=== PATIENT | female | born 1950 | race Caucasian/White ===

== ENCOUNTER → 2020-06-29 | Outpatient (CLI) | payer OTHER ==
[~2020-06-29] MED LIST: DICLOFENAC SODI75 MG PO; EZETIMIBE10 MG PO; FLONASE 0.05%50 MCG NARES; LEVOTHYROXINE175 MCG PO
== END ==
LOC: LAB 13:17
PROVIDERS: ATTEND Student in an Organized Health Care Education/Training Program
DX: U07.1 COVID-19 (principal)

== ENCOUNTER 2020-07-04 12:38 | Day surgery (SDC) | payer OTHER ==
[2020-06-29 14:36] LABS: HEMATOCRIT 40.3 % (37.0-47.0); HEMOGLOBIN 13.5 gm/dL (12.0-15.0); MCH 31.4 pg (26.0-34.0); MCHC 33.5 g/dL (28.0-37.0); MCV 93.9 fL (80.0-100.0); RBC 4.29 mil/uL (4.20-5.00); RDW 13.3 % (10.5-14.5); WBC 7.9 thou/uL (4.0-11.0)
[2020-06-29 14:41] LABS: CALCIUM 8.7 mg/dL (8.5-10.1); CREATININE 0.9 mg/dL (0.6-1.0); POTASSIUM 4.2 mmol/L (3.5-5.1)
[2020-06-29 14:46] LABS: PROTIME 10.1 Seconds (9.3-11.4)
[2020-06-29 15:23] LABS: URINE BILIRUBIN NEGATIVE (Negative); URINE BLOOD TRACE (Negative); URINE CLARITY CLEAR; URINE COLOR YELLOW; URINE GLUCOSE-RANDOM* NEGATIVE (Negative); URINE KETONES NEGATIVE (Negative); URINE LEUKOCYTES-REFLEX NEGATIVE (Negative); URINE NITRITE-REFLEX NEGATIVE (Negative); URINE PROTEIN (DIPSTICK) NEGATIVE (Negative); URINE SPECIFIC GRAVITY 1.015 (1.005-1.035); URINE UROBILINOGEN 0.2 E.U./dl (0.2-1.0)
[2020-06-29 15:56] LABS: BACTERIA-REFLEX 1-9 Few /HPF (None Seen); CASTS None Seen /LPF (None Seen); CRYSTALS None Seen /LPF (None Seen); SQUAMOUS 0-3 Few /LPF (0-3); URINE RBC None Seen /HPF (0-2); URINE WBC-REFLEX None Seen /HPF (0-5)
--- NOTE | 2020-06-29 15:56 | EKG ---
[facility] [place] [address] ELECTROCARDIOGRAM REPORT Name: ABIMBOLA CRENSHAW Room #: PRE [facility] M..#: [id number] Admission: Attend Phys: Timmy Venegas MD Discharge: Date of : 54 Report #: [id number] THIS REPORT FOR: cc: FAM - Family physician unknown FAM - Family physician unknown Parish Sahu MD [facility] ~ THIS REPORT FOR: //name// [facility] Test Date: 2020-06-29 Test Time: 13:16:17 Pat Name: ABIMBOLA CRENSHAW Department: Room: Gender: F Wide Load Escort: FAHEEM : 1950 Requested By: Timmy Venegas Order Number: [id number] MD: Parish Sahu Measurements Intervals Liberty Rate: 73 P: 40 WV: 142 QRS: 14 QRSD: 88 T: 26 QT: 408 QTc: 450 Interpretive Statements Sinus rhythm Low voltage, precordial leads Abnormal R-wave progression, early transition Baseline wander in lead(s) V1 No previous ECG available for comparison Electronically Signed On 06-29-2020 15:56:33 BARREL PAINTER by Parish Sahu [email or web address] <ELECTRONICALLY SIGNED> By: Parish Sahu MD, [facility] 06/29/20 1556 1316 1316 Parish Sahu MD, [facility] /EPI
[~2020-07-04] VITALS: Ht 167.6 cm; Wt 70.8 kg
[2020-07-04 13:28] VITALS: BP 128/93
[2020-07-04 18:20] VITALS: BP 144/83
[2020-07-04 18:40] VITALS: BP 144/78
[2020-07-04 19:30] VITALS: BP 124/78
[2020-07-04 20:00] VITALS: BP 119/73
[2020-07-04 21:00] VITALS: BP 111/68
--- NOTE | 2020-07-05 03:15 | NUR ---
ASSESSED AT START OF SHIFT. PT A&OX4. ADMISSION DONE AND PT ORIENTED TO THE UNIT. PAIN MEDICATION GIVEN. IV INTACT WITH FLUIDS. SCD'S, TEDHOSE AND POLAR PACK INTACT. DENIES N/V NIGHT TIME SNACKS PROVIDED. FALL PREC IN PLACE AND CALL LIGHT IN REACH WILL CONT TO MONITOR.
[2020-07-05 04:11] VITALS: BP 105/62
[2020-07-05 05:35] LABS: HEMATOCRIT 34.6 % (37.0-47.0); HEMOGLOBIN 11.3 gm/dL (12.0-15.0); MCH 31.2 pg (26.0-34.0); MCHC 32.7 g/dL (28.0-37.0); MCV 95.6 fL (80.0-100.0); RBC 3.62 mil/uL (4.20-5.00); RDW 13.7 % (10.5-14.5); WBC 12.5 thou/uL (4.0-11.0)
[2020-07-05 07:46] VITALS: BP 118/77
--- NOTE | 2020-07-05 09:05 | NUR ---
assessment: CM REVIEWED CHART AND SPOKE WITH PT. PT IS ALERT AND ORIENTED X4. PT IS S/P R TKA. PT REPORTS LIVING IN A HOUSE AT THE [facility] WITH HER IN [place], [place]. PT REPORTS THAT SHE HAS ONE STEP TO ENTER. PT STATES SHE CAN LIVE OFF THE MAIN LEVEL BUT DOES HAVE STEPS SHE CAN AVOID USING FOR A WHILE. PT REPORTS SHE IS NORMALLY INDEPENDENT WITH ADLS AND AMBULATION AND HAS NO DME AT HOME. CM DISCUSSED ROLE AND LIKELY NEED FOR A WALKER. PT REPORTS HAVING NO PREFERENCE OF DME COMPANY. CM NOTIFIED PROVIDER PLUS OF POSSIBLE NEED FOR A WALKER AND AWAITING PHYSICAL THERAPY EVAL. PT REPORTS HAVING OUTPATIENT THERAPY ARRAnged STATING TOMORROW 07/06. CM WILL CONTINUE TO FOLLOW TO ASSIST NEEDED.
[2020-07-05 10:48] VITALS: BP 118/77
--- NOTE | 2020-07-05 13:04 | NUR ---
PT CARE ASSUMED AT 0700. A&Ox4. IV PATENT WITH NO REDNESS OR EDEMA, IV ANTIBIOTICS GIVEN. SALINE LOCKED. POLARPACK/SCD'S/FALLON HOSES IN PLACE. DEX DRESSING DRY AND INTACT. PAIN CONTROLLED WELL WITH PAIN MEDICATION ON BOARD. PT UP IN RECLINER ALL DAY. FALL PROTOCOL IN PLACE. PT PERSONAL WALKER IN ROOM. CALL LIGHT IN REACH. WILL CONTINUE TO MONITOR.
[2020-07-05 13:49] VITALS: BP 118/77
--- NOTE | 2020-07-10 12:39 | O ---
[facility] [place] [address] OPERATIVE REPORT Name: ABIMBOLA CRENSHAW Room #: DEP [facility] M.R.#: [id number] Admission: 07/04/20 Attend Phys: Timmy Venegas MD Discharge: 07/05/20 Date of : 54 Report #: [id number] THIS REPORT FOR: cc: Physician not on staff Physician not on staff Timmy Venegas MD ~ CC: JEREMY DE PAZ Physician staff Timmy Venegas DATE OF SERVICE: 07/04/2020 PREOPERATIVE DIAGNOSIS: Right knee osteoarthritis. POSTOPERATIVE DIAGNOSIS: Right knee osteoarthritis. PROCEDURE: Right total knee arthroplasty using Navio robotic assistance. SURGEON: Timmy Venegas MD. BAND SPLICER: Latoya Hilliard PA-C. INDICATIONS FOR BAND SPLICER: Throughout the case, extensive retraction and manipulation of the knee was required. This was afforded to me by my assistant manager quality management. ANESTHESIA: LMA with an adductor canal block. IMPLANTS: Edwards and Nephew size 4 Journey II BCS cobalt chrome femur, size 3 tibia, size 10 polyethylene and size 32 patella. TOURNIQUET TIME: 50 minutes. ESTIMATED BLOOD LOSS: 25 mL. COMPLICATIONS: None. SPECIMENS: None. CONDITION UPON LEAVING THE OPERATING ROOM: Stable. INDICATIONS FOR PROCEDURE: The patient is a 70-year-old female with severe right knee osteoarthritis. She had failed conservative measures for this and after discussion with her, she elected for right total knee arthroplasty. DESCRIPTION OF PROCEDURE: Risks, benefits, alternatives, complications were discussed in detail with the patient including but not limited to risk of [facility] [address] [place] [address] OPERATIVE REPORT Name: ABIMBOLA CRENSHAW Room #: DEP [facility] M.R.#: [id number] Admission: 07/04/20 Attend Phys: Timmy Venegas MD Discharge: 07/05/20 Date of : 54 Report #: [id number] anesthesia, risk of damage to nerves, arteries, blood vessels, risk for infection, bleeding, risk for continued knee pain and need for reoperation. Informed consent was obtained from the patient. The right knee was appropriately marked in the preoperative holding area. IV Ancef was given for preoperative antibiotics. She was brought to the operating room and placed in supine position on operating room table. LMA anesthesia was induced without complication. Tourniquet was placed on the right thigh. Right lower extremity was prepped and draped in normal sterile fashion. Timeout was performed properly identifying the patient and procedure as well as the instrumentation and implants. All in the operating room were in agreement. Right lower extremity was exsanguinated, tourniquet was inflated. Tourniquet time was 50 minutes. Standard midline approach to the knee was made with 10 blade through the skin. Dissection was taken down sharply to the fascia and deep flaps were developed medially and laterally. Fresh 10 blade was used to make a medial parapatellar arthrotomy and the knee was inspected. There was severe patellofemoral osteoarthritis with hypoplasia of the lateral femoral condyle. There was also moderate medial and lateral compartment osteoarthritis. ACL and PCL were removed sharply. Reference pins were placed in the femur and the tibia. The knee was then digitally mapped using the [employer] robotic system. Intraoperative plan was made ____ 4 femur, size 3 tibia and a 10 spacer. After acceptance of the intraoperative plan, the distal femoral cut was made with a Navio bur. Distal femoral cutting block was pinned in place and anterior, posterior and chamfer cuts were made. Attention was turned to the tibia. Remainder of the menisci removed with Bovie cautery. Tibial resection guide was pinned in place using the Navio for placement and tibial resection was made. After this, flexion and extension gaps were checked and found to have good balance in flexion and extension both medially and laterally. Tibia was sized, found to be a size 3. A size 3 tibial trial was placed, pinned and punched. A size 4 femoral trial was placed and the box cut was made. This was then trialed with a size 10 polyethylene. Size 10 polyethylene demonstrated 1-2 millimeter of laxity medially and laterally throughout range of motion of the knee, was felt to be stable. A 9 mm of bone was resected from the posterior surface of the patella and a size 32 patellar trial button was placed. Knee was taken through range of motion, found to be stable, found to have good patellar tracking. Trial components were removed. Bony ends were thoroughly irrigated with normal saline. A final size 3 tibia, size 4 Journey II BCS cobalt chrome femur and a size 32 patella were cemented in place using standard cementation techniques. While the cement cured, a periarticular injection consisting of morphine, ropivacaine, epinephrine and Toradol was placed around the knee joint capsule. After the cement cured, the tourniquet was deflated. Hemostasis was obtained with Bovie cautery. A final size 10 polyethylene was placed. A gram of vancomycin was placed deep in the joint. Fascia was closed with 0 Vicryl, skin was closed with 2-0 Vicryl, 3-0 Monocryl. Dermabond and a DEX dressing [address] [address] OPERATIVE REPORT Name: ABIMBOLA CRENSHAW Room #: DEP [facility] MMoonR.#: [id number] Admission: 07/04/20 Attend Phys: Timmy Venegas MD Discharge: 07/05/20 Date of : 54 Report #: [id number] was applied. The patient tolerated this procedure well and went to recovery room under care of anesthesia postoperatively. <ELECTRONICALLY SIGNED> By: Timmy Venegas MD 07/10/20 1239 1733 1758 Timmy Venegas MD /nt
== END 2020-07-05 14:34 | disposition home or self-care (01) ==
LOC: OR 12:38 → 4S 18:13 → OR 07-05 14:34
PROVIDERS: ATTEND Orthopaedic Surgery
DX: M17.11 Unilateral primary osteoarthritis, right knee (principal); M25.561 Pain in right knee; E78.5 Hyperlipidemia, unspecified; Z98.890 Other specified postprocedural states; Z79.899 Other long term (current) drug therapy
CPT/HCPCS: 10102; 50010; 50101; 50415; 50954; 51130; 51225; 51320; 53000; 53078; 54118; 56527; 56528; 57095; 57103; 57110; 57127; 57179; 58239; 62110; 62900; 64039; 70005

== ENCOUNTER → 2021-05-28 | Outpatient (CLI) | payer OTHER ==
[~2021-05-28] MED LIST changes: +MILLTRIUM SENI1 EACH PO
[2021-05-28 13:17] LABS: URINE BILIRUBIN NEGATIVE (Negative); URINE BLOOD TRACE (Negative); URINE CLARITY CLEAR; URINE COLOR YELLOW; URINE GLUCOSE-RANDOM* NEGATIVE (Negative); URINE KETONES NEGATIVE (Negative); URINE LEUKOCYTES-REFLEX NEGATIVE (Negative); URINE NITRITE-REFLEX NEGATIVE (Negative); URINE PROTEIN (DIPSTICK) NEGATIVE (Negative); URINE UROBILINOGEN 0.2 E.U./dl (0.2-1.0)
[2021-05-28 13:18] LABS: HEMATOCRIT 43.7 % (37.0-47.0); HEMOGLOBIN 14.3 gm/dL (12.0-15.0); MCH 31.6 pg (26.0-34.0); MCHC 32.7 g/dL (28.0-37.0); MCV 96.6 fL (80.0-100.0); RBC 4.53 mil/uL (4.20-5.00); RDW 13.3 % (10.5-14.5); WBC 10.3 thou/uL (4.0-11.0)
[2021-05-28 13:31] LABS: INR 0.93; PROTIME 10.2 Seconds (10.5-12.1)
[2021-05-28 13:32] LABS: ALBUMIN 3.8 g/dL (3.4-5.0); CALCIUM 9.2 mg/dL (8.5-10.1)
== END ==
LOC: PAC 11:51
PROVIDERS: ATTEND Orthopaedic Surgery
DX: Z01.812 Encounter for preprocedural laboratory examination (principal); M17.0 Bilateral primary osteoarthritis of knee; Z91.048 Other nonmedicinal substance allergy status

== ENCOUNTER 2021-06-05 10:19 | Observation (INO) | payer OTHER ==
[~2021-06-05] VITALS: Ht 167.6 cm; Wt 67.1 kg
--- NOTE | ~2021-06-05 | O ---
[facility] [place] [address] OPERATIVE REPORT Name: ABIMBOLA CRENSHAW Room #: 440-P [facility] M.R.#: [id number] Admission: 06/05/21 Attend Phys: Timmy Venegas MD Discharge: Date of : 54 Report #: [id number] THIS REPORT FOR: cc: FAM - Family physician unknown FAM - Family physician unknown Timmy Venegas MD ~ DATE OF SERVICE: 06/05/2021 PREOPERATIVE DIAGNOSIS: Left knee osteoarthritis. POSTOPERATIVE DIAGNOSIS: Left knee osteoarthritis. PROCEDURE: Left total knee arthroplasty using Navio robotic assistance. SURGEON: Timmy Venegas MD. BONE CRUSHER: Latoya Hilliard PA-C. INDICATION FOR BONE CRUSHER: Throughout the case, extensive retraction, manipulation of the knee was required. This was afforded to me by my engineer assistant. ANESTHESIA: LMA with adductor canal block. IMPLANTS: A Edwards and Nephew size 4 Journey II BCS Oxinium femur, a size 3 tibia, size 12 constrained polyethylene and size 32 patella. TOURNIQUET TIME: 51 minutes. ESTIMATED BLOOD LOSS: 25 mL COMPLICATIONS: None. SPECIMENS: None. CONDITION UPON LEAVING THE OR: Stable. INDICATIONS FOR PROCEDURE: The patient is a 71-year-old female with left knee osteoarthritis. She had failed conservative measures for this and after discussion with her, she elected for left total knee arthroplasty. DESCRIPTION OF PROCEDURE: Risks, benefits, alternatives, complications were discussed in detail with the patient including but not limited to risk of anesthesia, risk of damage to nerves, arteries, blood vessels, risk for infection, bleeding, risk for continued knee pain, need for reoperation. Informed consent was obtained from the patient, left knee was appropriately marked in the preoperative holding area. IV Ancef was given for preoperative [address] [address] OPERATIVE REPORT Name: ABIMBOLA CRENSHAW Room #: 440-P [facility] M.R.#: [id number] Admission: 06/05/21 Attend Phys: Timmy Venegas MD Discharge: Date of : 54 Report #: [id number] antibiotics. Adductor canal block was placed by anesthesia. She was brought to the operating room and placed in supine position on the operating table. LMA anesthesia was induced without complication. Tourniquet was placed on the left thigh. Left lower extremity was prepped and draped in normal sterile fashion. Timeout was performed properly identifying the patient and procedure as well as instrumentation and implants. All in the operating room in agreement. Left lower extremity was exsanguinated, tourniquet was inflated. Tourniquet time was 51 minutes. Standard midline approach to the knee was made with 10 blade through the skin. Dissection was taken down sharply to the fascia and deep flaps were developed medially and laterally. Medial parapatellar arthrotomy was made with a fresh #10 blade and the knee was inspected. There was superior and lateral compartment osteoarthritis with moderate medial and severe patellofemoral compartment osteoarthritis. ACL and PCL were removed sharply. Reference pins were placed in the femur and the tibia. The knee was digitally mapped using the [employer] robotic system. Intraoperative plan was made. We sized the size 4 femur and size 3 tibia, 10 spacer after acceptance of the intraoperative plan and the distal femoral cut was made with Navio bur. Distal femoral cutting block was pinned in place and chamfer cuts were made. Attention was turned to the tibia. Remainder of the menisci removed with Bovie cautery. Tibial resection guide was pinned in place using Navio for placement and tibial resection was made. Flexion and extension gaps were checked and found to have good balance laterally in flexion and extension. Medially, she was somewhat lax and this was not surprising given her underlying valgus deformity. It was felt we can make up for this with a constrained implant. Tibia sized, found to be a size 3. Size 3 tibial trial was placed, pinned and punched. Size 4 femoral trial was placed and the box cut was made. This was then trialed with a size 10 up to a size 12 polyethylene. Size 12 polyethylene demonstrated 1-2 mm of laxity laterally throughout range of motion of the knee. Medially, she did open up to 3.5 mm and again it was felt we can make up for this with a constrained implant. A 9 mm of bone was resected from the posterior surface of the patella and a size 32 patellar trial button was placed. Knee was taken through range of motion, found to be stable, found to have good patellar tracking. Trial components were removed. Bone ends were thoroughly irrigated with normal saline. A final size 3 tibia, size 4 Journey II BCS Oxinium femur and a size 32 patella were cemented in place using standard cementation techniques. While the cement cured, a periarticular injection consisting of morphine, ropivacaine, epinephrine, Toradol was placed around the knee joint capsule. After the cement cured, tourniquet was deflated. Hemostasis was obtained with Bovie cautery. Final size 12 constrained polyethylene was placed. A gram of vancomycin was placed deep in the joint. The fascia was closed with 0 Vicryl. Skin was closed with 2-0 Vicryl, 3-0 Monocryl. Dermabond and a DEX dressing was applied. The [address] [address] OPERATIVE REPORT Name: ABIMBOLA CRENSHAW Room #: 440-P [facility].#: [id number] Admission: 06/05/21 Attend Phys: Timmy Venegas MD Discharge: Date of : 54 Report #: [id number] patient tolerated this procedure well and went to recovery room under care of anesthesia postoperatively. By: 1519 1601 Timmy Venegas MD /nt
[2021-06-05 11:33] VITALS: BP 136/85
--- NOTE | 2021-06-05 17:37 | NUR ---
ASSUMED PT CARE AT 1600 FROM PACU. PT IS ALERT & ORIENTED X4. PT HAS L HAND 20 GAUGE RUNNING D5 1/5 NS @100ML/HR. PT HAS THOMAS BREWER, FALLON VEL[place]ZQUEZ, SCD AND IS. PT RATED PAIN 3/10 ON L KNEE. FINISHED ADMISSION. PT AT THE BEDSIDE. LAST BM WAS THIS MORNING. PT IS ON THE BED EATING DINNER, BED ON THE LOWEST POSITION, SIDE RAILS UP, CALL LIGHT WITHIN REACH. WILL CONTINUE TO MONITOR PT. FOLLOW POC.
[2021-06-05 19:24] VITALS: BP 120/74
--- NOTE | 2021-06-06 03:57 | NUR ---
PT OBSERVED LYING DOWN ON HER BED WATCHING TV AT SHIFT CHANGE.PAIN MED GIVEN PER PT'S REQUEST.PT UP WITH ASSIST GB AND WALKER TO THE BSC,GOOD ENDURANCE NOTED.LIAG C/D/I WITH POLAR PACK/SCD AND FALLON HOSE IN PLACE.PT ABLE TO MAKE HER NEEDS KNOWN.CALL LIGHT WITHIN REACH.
[2021-06-06 04:35] VITALS: BP 113/73
[2021-06-06 08:21] VITALS: BP 102/71
[2021-06-06 11:22] VITALS: BP 106/66
--- NOTE | 2021-06-06 11:40 | NUR ---
PT ADMITTED RELATED TO LT TKR. CM REVIEWED CHART AND SPOKE WITH CARE TEAM. CM MET WITH PT AT BEDSIDE THIS DAY. PT APPEARED TO BE A&O X4. CM ROLE INTRODUCED . PT INDICATED SHE LIVES IN A HOUSE AT THE [facility] WITH HER SPOUSE. PT INDICATED 1 STEP TO ENTER AND ALL NEEDS ON 1 LEVEL INSIDE. PT INDICATED SHE HAS A FWW FOR HOME USE FROM PREVIOUS SURGERY. PT INDICATED SHE IS SET UP WITH OP PT AT [facility] WITH FIRST APPOINTMENT TOMORROW. PT'S PCP IS DR. JEREMY DE PAZ IN [place]. PT TO DC HOME THIS DAY. PT'S SPOUSE TO TRANSPORT. NO OTHER CM INTERVENTION INDICATED. CASE CLOSED.
[2021-06-06 15:07] VITALS: BP 106/66
--- NOTE | 2021-06-06 15:27 | NUR ---
TODAY THIS PT HAS BEEN GEARING UP FOR D/C SHE HAS HAD SOME STATED PAIN IN WHICH SHE WAS MEDICATED. SHE HAS OTHERWISE BEEN TOLERATING THERAPY AND IS READY FOR D/C
== END 2021-06-06 15:31 | disposition short-term general hospital (02) ==
LOC: OR 10:19 → 4S 15:54 → OR 15:55 → 4S 06-06 15:31
PROVIDERS: ADMIT Orthopaedic Surgery; ATTEND Orthopaedic Surgery
DX: M17.12 Unilateral primary osteoarthritis, left knee (principal); Z20.822 Contact with and (suspected) exposure to COVID-19
CPT/HCPCS: 10102; 50010; 50101; 50415; 50954; 51130; 51225; 53000; 53078; 53365; 54118; 56527; 56528; 57095; 57103; 57110; 57127; 57179; 59024; 62110; 62900; 64041; 70005